=== PATIENT | female | born 1965 | race Asian ===

== ENCOUNTER 2024-01-04 01:40 | Inpatient (IN) ==
[2024-01-04] MEDS: Piperacillin/Tazobac 3.375 BAG 3.375 GM/100 ML BAG IV ONE (04:54)
[2024-01-04 04:59] LABS: Venous Bicarbonate HCO3 17.4 mmol/L (24-28)
[2024-01-04] MEDS ORDERED: Vancomycin 750 MG in NS 0.9% 250 ml 250 ML IVPB SCH (05:00)
[2024-01-04 05:10] LABS: INR 0.99 (0.85-1.14)
[2024-01-04 05:22] LABS: Hematocrit 28.3 % (35-45); Hemoglobin 8.9 g/dL (11.5-14.3); Mean Corpuscular Hemoglobin 25.5 pg (27-33); Mean Corpuscular Hgb Conc 31.4 g/dL (31-36); Mean Corpuscular Volume 81.1 fL (80-97); Mean Platelet Volume 8.5 fL (7.5-11.2); Platelet Count 211 10^3/uL (150-450); Red Blood Count 3.49 10^6/uL (3.63-4.92); Red Cell Distribution Width 16.6 % (12-17)
[2024-01-04] MEDS: Vancomycin 750 MG in NS 0.9% 250 ml 250 ML IVPB ONE (05:34)
[2024-01-04] MEDS: LACTATED RINGERS SEPSIS IV ONE (05:34)
[2024-01-04 05:50] LABS: Albumin 2.8 g/dL (3.2-5.2); Albumin/Globulin Ratio 0.6 (1-3); C Reactive Protein 3.52 mg/L (<8.01); Calcium 7.5 mg/dL (8.6-10.3); Creatinine, Serum 1.39 mg/dL (0.51-0.95); Globulin 4.8 g/dL (2-4); Potassium 5.1 mmol/L (3.5-5.0); Total Bilirubin 0.4 mg/dL (0.2-1.0); Total Protein 7.6 g/dL (6.4-8.9); eGFR CKD-EPI 44.3 (>60)
[2024-01-04 06:26] LABS: ABS Lymphocytes 0.3 10^3/uL (1.0-4.8); ABS Monocytes 0.3 10^3/uL (0.0-0.9); ABS Neutrophils 1.5 10^3/uL (1.5-7.6); ABS Nucleated RBC 0.04 10^3/ul; Anisocytosis 1+; Eosinophil % 0.5 %; Hypochromasia 1+; Nucleated Red Blood Cells % 1.9 %/100WBC (0.0-0.8); Tear Drop Cells 1+; White Blood Count 2.2 10^3/uL (3.8-11.8)
[2024-01-04 06:39] LABS: Erythrocyte Sed Rate 55 mm/Hr (0-29)
[2024-01-04 06:50] LABS: Urine Appearance Clear; Urine Bilirubin Negative (Negative); Urine Blood Negative (Negative); Urine Color Yellow; Urine Glucose Negative (Negative); Urine Ketones Negative (Negative); Urine Nitrite Negative (Negative); Urine Protein 1+ (>=30 mg/dL) (Negative); Urine Specific Gravity 1.019 (1.002-1.030); Urine Urobilinogen Negative (Negative)
[2024-01-04 06:59] LABS: High Sensitivity Troponin 1 Hr 79 pg/mL (<15)
[2024-01-04] MEDS: Acetaminophen IV 1 GM/100ML 1,000 MG/100 ML BAG IV ONE (08:12)
[2024-01-04] MEDS: Iodixanol (CONTRAST) 320 MG/ML 100 ML SDV IV ONE (08:43)
[2024-01-04] MEDS: Lactated Ringers 1000 ml BAG 1,000 ML IV ONE (12:59)
[2024-01-04] MEDS ORDERED: Vancomycin per Pharmacy 1 EA NOTE FOLLOW UP SCH (13:00)
[2024-01-04] MEDS: Enoxaparin 40 MG/0.4 ML SYR SUBCUT SCH (13:33)
[2024-01-04] MEDS: cefTRIAXone 2 gm/50 mL D5W 2 GM/50 ML BAG IV SCH (13:33)
[2024-01-04] MEDS: Hydrocortisone INJ 100 MG/2ML 2 ML VIAL IV SCH (14:55)
[2024-01-04 14:56] LABS: Osmolality Serum 276 mOsm/kg (275-295)
[2024-01-04 17:40] LABS: ABS Lymphocytes 0.2 10^3/uL (1.0-4.8); ABS Monocytes 0.2 10^3/uL (0.0-0.9); ABS Neutrophils 1.8 10^3/uL (1.5-7.6); ABS Nucleated RBC 0.02 10^3/ul; Hematocrit 26.5 % (35-45); Hemoglobin 8.3 g/dL (11.5-14.3); Lymphocyte % 9.3 %; Mean Corpuscular Hemoglobin 25.6 pg (27-33); Mean Corpuscular Hgb Conc 31.3 g/dL (31-36); Mean Corpuscular Volume 81.6 fL (80-97); Mean Platelet Volume 8.4 fL (7.5-11.2); Nucleated Red Blood Cells % 0.9 %/100WBC (0.0-0.8); Platelet Count 183 10^3/uL (150-450); Red Blood Count 3.24 10^6/uL (3.63-4.92); White Blood Count 2.2 10^3/uL (3.8-11.8)
[2024-01-04 17:48] LABS: Urine Osmo 256 mOsm/kg (150-1150)
[2024-01-04 18:22] LABS: Calcium 7.3 mg/dL (8.6-10.3); Creatinine, Serum 1.2 mg/dL (0.51-0.95); Potassium 4.8 mmol/L (3.5-5.0); eGFR CKD-EPI 52.8 (>60)
[2024-01-04] MEDS: Acetaminophen IV 1 GM/100ML 1,000 MG/100 ML BAG IV PRN (22:26)
[2024-01-05] MEDS: Norepinephrine 4 MG/250mL D5W 4,000 MCG/250 ML BAG IV SCH (01:02)
[2024-01-05] MEDS: Norepinephrine 4 MG/250mL D5W 4,000 MCG/250 ML BAG IV ONE (01:32)
[2024-01-05 05:30] LABS: Immature Retic Fraction 0.41
[2024-01-05 05:37] LABS: ABS Lymphocytes 0.4 10^3/uL (1.0-4.8); ABS Monocytes 0.2 10^3/uL (0.0-0.9); ABS Neutrophils 1.3 10^3/uL (1.5-7.6); ABS Nucleated RBC 0.03 10^3/ul; Eosinophil % 0.1 %; Hematocrit 29.2 % (35-45); Hematocrit for Retic CNT 29.2 % (35-45); Hemoglobin 9.4 g/dL (11.5-14.3); Lymphocyte % 20.1 %; Mean Corpuscular Hemoglobin 26.3 pg (27-33); Mean Corpuscular Hgb Conc 32.4 g/dL (31-36); Mean Corpuscular Volume 81.2 fL (80-97); Mean Platelet Volume 8.4 fL (7.5-11.2); Nucleated Red Blood Cells % 1.6 %/100WBC (0.0-0.8); Platelet Count 190 10^3/uL (150-450); RBC Retic Count 3.59 10^6/ul (3.63-4.92); Red Blood Count 3.59 10^6/uL (3.63-4.92); Red Cell Distribution Width 16.9 % (12-17); White Blood Count 1.9 10^3/uL (3.8-11.8)
[2024-01-05 05:54] LABS: Calcium 7.6 mg/dL (8.6-10.3); Creatinine, Serum 1.18 mg/dL (0.51-0.95); Magnesium 2.1 mg/dL (1.9-2.7); eGFR CKD-EPI 53.9 (>60)
[2024-01-05] MEDS ORDERED: Vancomycin 1,000 MG in NS 0.9% 250 ml 250 ML IVPB SCH (06:00)
[2024-01-05] MEDS: DOXYcycline 100 MG in NS 0.9% 250 ml 250 ML IVPB ONE (20:44)
[2024-01-05 23:55] LABS: Ferritin 6548.5 ng/mL (11-307)
[2024-01-06 07:37] LABS: Hematocrit 29.8 % (35-45); Hemoglobin 9.7 g/dL (11.5-14.3); Mean Corpuscular Hemoglobin 26.3 pg (27-33); Mean Corpuscular Hgb Conc 32.6 g/dL (31-36); Mean Corpuscular Volume 80.8 fL (80-97); Mean Platelet Volume 8.1 fL (7.5-11.2); Platelet Count 172 10^3/uL (150-450); Red Blood Count 3.68 10^6/uL (3.63-4.92); Red Cell Distribution Width 17.1 % (12-17); White Blood Count 1.9 10^3/uL (3.8-11.8)
[2024-01-06 17:24] LABS: Calcium 7.3 mg/dL (8.6-10.3); Creatinine, Serum 0.77 mg/dL (0.51-0.95); Potassium 4.4 mmol/L (3.5-5.0); eGFR CKD-EPI 89.9 (>60)
[2024-01-07 05:12] LABS: Hematocrit 28.5 % (35-45); Hemoglobin 9.3 g/dL (11.5-14.3); Mean Corpuscular Hemoglobin 26.5 pg (27-33); Mean Corpuscular Hgb Conc 32.7 g/dL (31-36); Mean Platelet Volume 8.3 fL (7.5-11.2); Platelet Count 131 10^3/uL (150-450); Red Blood Count 3.52 10^6/uL (3.63-4.92); Red Cell Distribution Width 17.3 % (12-17); White Blood Count 2.3 10^3/uL (3.8-11.8)
[2024-01-07] MEDS ORDERED: Vancomycin Trough Check NOTE FOLLOW UP ONE (05:30)
[2024-01-07 05:35] LABS: Creatinine, Serum 0.71 mg/dL (0.51-0.95); Magnesium 1.8 mg/dL (1.9-2.7); Phosphorus 3.1 mg/dL (2.5-5.0); Potassium 4.4 mmol/L (3.5-5.0); eGFR CKD-EPI 99.1 (>60)
[2024-01-07 05:39] LABS: Osmolality Serum 274 mOsm/kg (275-295)
[2024-01-07 05:47] LABS: Urine Osmo 640 mOsm/kg (150-1150)
[2024-01-07] MEDS: Magnesium Sulfate 2 gm BAG 2 GM/50 ML BAG IVPB ONE (06:09)
[2024-01-07 07:15] LABS: ABS Lymphocytes 0.6 10^3/uL (1.0-4.8); ABS Monocytes 0.7 10^3/uL (0.0-0.9); ABS Neutrophils 0.9 10^3/uL (1.5-7.6)
[2024-01-07 07:16] LABS: Anisocytosis 1+; Tear Drop Cells 1+
[2024-01-07 09:40] LABS: PCO2 Arterial 27 mmHg (35-45); PO2 Arterial 96 mmHg (80-100)
[2024-01-07] MEDS ORDERED: Sulfur Hexaflouride MICROSPHR 25 MG VIAL IV PRN (10:21)
[2024-01-07] MEDS: Metoprolol Tartrate 5 mg VIAL 5 ml VIAL (1 mg/ml) IV ONE (10:24)
[2024-01-07 11:31] LABS: TSH Ultra Thyroid Stim Horm 1.27 mcIU/mL (0.34-5.60)
[2024-01-07] MEDS: Enoxaparin 60 MG/0.6 ML SYR SUBCUT SCH ×2 (11:35→13:16)
[2024-01-07 11:36] LABS: RBC Parasite Smear No Parasites Seen (No Parasite)
[2024-01-07] MEDS: DOXYcycline 100 MG in NS 0.9% 250 ml 250 ML IVPB SCH ×2 (13:16→13:31)
[2024-01-08 09:03] LABS: Hematocrit 29.9 % (35-45); Hemoglobin 9.7 g/dL (11.5-14.3); Mean Corpuscular Hemoglobin 26.3 pg (27-33); Mean Corpuscular Hgb Conc 32.6 g/dL (31-36); Mean Corpuscular Volume 80.8 fL (80-97); Mean Platelet Volume 8.5 fL (7.5-11.2); Platelet Count 130 10^3/uL (150-450); Red Cell Distribution Width 17.1 % (12-17); White Blood Count 2.4 10^3/uL (3.8-11.8)
[2024-01-08 09:40] LABS: RBC Morphology Normal (Normal)
[2024-01-08 09:41] LABS: ABS Eosinophils 0.1 10^3/ul (0.0-0.5); ABS Lymphocytes 0.4 10^3/ul (1.0-4.8); ABS Monocytes 0.6 10^3/ul (0.0-0.9); ABS Neutrophils 1.4 10^3/ul (1.5-7.6)
[2024-01-08 10:03] LABS: Creatinine, Serum 0.58 mg/dL (0.51-0.95); Magnesium 2.2 mg/dL (1.9-2.7); Phosphorus 2.9 mg/dL (2.5-5.0); Potassium 4.4 mmol/L (3.5-5.0); eGFR CKD-EPI 105.5 (>60)
[2024-01-08] MEDS: Ure-Na 15 GM POWD.PACK PO SCH (14:41)
[2024-01-08 15:52] LABS: Folate 5.02 ng/mL (5.90-24.80)
[2024-01-08 23:55] LABS: Anaplasma phagocytophilum Negative (Negative); B. miyamotoi PCR, B Negative (Negative); Babesia divergens/MO-1 Negative (Negative); Babesia ducani Negative (Negative); Ehrlichia chaffeensis Negative (Negative); Ehrlichia ewingii/canis Negative (Negative); Ehrlichia muris eauclairensis Negative (Negative)
[2024-01-09] MEDS ORDERED: Magnesium Hydroxide LIQ 30 ML UDC PO PRN (04:44)
[2024-01-09 07:21] LABS: Creatinine, Serum 0.51 mg/dL (0.51-0.95); Potassium 4.3 mmol/L (3.5-5.0); eGFR CKD-EPI 108.8 (>60)
[2024-01-09 07:40] LABS: Hematocrit 29.8 % (35-45); Hemoglobin 8.9 g/dL (11.5-14.3); Mean Corpuscular Hemoglobin 26.2 pg (27-33); Mean Corpuscular Hgb Conc 29.8 g/dL (31-36); Mean Corpuscular Volume 87.9 fL (80-97); Mean Platelet Volume 8.9 fL (7.5-11.2); Platelet Count 115 10^3/uL (150-450); Red Blood Count 3.39 10^6/uL (3.63-4.92); Red Cell Distribution Width 18.8 % (12-17); White Blood Count 3.6 10^3/uL (3.8-11.8)
[2024-01-09 08:11] LABS: Hematocrit 27.8 % (35-45); Hemoglobin 9.1 g/dL (11.5-14.3); Mean Corpuscular Hemoglobin 26.6 pg (27-33); Mean Corpuscular Hgb Conc 32.8 g/dL (31-36); Mean Platelet Volume 8.5 fL (7.5-11.2); Platelet Count 120 10^3/uL (150-450); Red Blood Count 3.43 10^6/uL (3.63-4.92); Red Cell Distribution Width 17.6 % (12-17); White Blood Count 3.3 10^3/uL (3.8-11.8)
[2024-01-09 09:21] LABS: Anisocytosis 1+
[2024-01-09 09:22] LABS: ABS Lymphocytes 0.5 10^3/ul (1.0-4.8); ABS Monocytes 0.8 10^3/ul (0.0-0.9)
[2024-01-09 16:42] LABS: JO-1 Antibody <0.2 U; RNP Antibody, IgG >8.0 U; SS-A/Ro Antibody >8.0 U; SS-B/La Antibody 6.2 U; Scl 70 Ab, IgG, S <0.2 U; Sm (Smith) IgG Antibody 2.3 U
[2024-01-09 17:16] LABS: Uric Acid, U 306 mg/24 h (250 - 750); Urine Volume 650 mL
[2024-01-09 17:22] LABS: Cytomegalovirus IgG Antibody Positive (Negative)
[2024-01-09] MEDS: Enoxaparin 60 MG/0.6 ML SYR SUBCUT SCH (20:00)
[2024-01-09 23:01] LABS: ANA Pattern: Homogeneous; ANA Titer: >=1:2560
[2024-01-10 06:08] LABS: Hematocrit 25.9 % (35-45); Hemoglobin 8.2 g/dL (11.5-14.3); Mean Corpuscular Hemoglobin 25.7 pg (27-33); Mean Corpuscular Hgb Conc 31.7 g/dL (31-36); Mean Corpuscular Volume 81.1 fL (80-97); Mean Platelet Volume 8.7 fL (7.5-11.2); Platelet Count 128 10^3/uL (150-450); Red Blood Count 3.19 10^6/uL (3.63-4.92); Red Cell Distribution Width 17.3 % (12-17); White Blood Count 4.5 10^3/uL (3.8-11.8)
[2024-01-10 06:59] LABS: Albumin 2.2 g/dL (3.2-5.2); Albumin/Globulin Ratio 0.6 (1-3); Calcium 7.2 mg/dL (8.6-10.3); Creatinine, Serum 0.51 mg/dL (0.51-0.95); Globulin 3.5 g/dL (2-4); Magnesium 1.8 mg/dL (1.9-2.7); Potassium 3.9 mmol/L (3.5-5.0); Total Bilirubin 0.4 mg/dL (0.2-1.0); Total Protein 5.7 g/dL (6.4-8.9); eGFR CKD-EPI 108.8 (>60)
[2024-01-10 08:52] LABS: Ferritin 7767.3 ng/mL (11-307)
[2024-01-10 09:22] LABS: Anisocytosis 1+; Hypochromasia 1+; Polychromasia 1+
[2024-01-10 09:23] LABS: ABS Lymphocytes 0.5 10^3/ul (1.0-4.8); ABS Monocytes 1.2 10^3/ul (0.0-0.9); ABS Neutrophils 2.7 10^3/ul (1.5-7.6)
[2024-01-10 14:15] LABS: CMV DNA DETECT/QT, P Undetected IU/mL (Undetected)
[2024-01-10 14:47] LABS: IgG Immunoblot Negative (Negative); IgM Immunoblot Negative (Negative)
[2024-01-11 06:12] LABS: Hematocrit 24.4 % (35-45); Hemoglobin 8.1 g/dL (11.5-14.3); Mean Corpuscular Hemoglobin 26.6 pg (27-33); Mean Corpuscular Hgb Conc 33.1 g/dL (31-36); Mean Corpuscular Volume 80.4 fL (80-97); Mean Platelet Volume 8.3 fL (7.5-11.2); Platelet Count 130 10^3/uL (150-450); Red Blood Count 3.04 10^6/uL (3.63-4.92); Red Cell Distribution Width 17.5 % (12-17)
[2024-01-11 07:02] LABS: Calcium 7.3 mg/dL (8.6-10.3); Creatinine, Serum 0.55 mg/dL (0.51-0.95); Magnesium 1.9 mg/dL (1.9-2.7); eGFR CKD-EPI 106.8 (>60)
[2024-01-11 07:31] LABS: ABS Lymphocytes 0.9 10^3/uL (1.0-4.8); ABS Monocytes 1.2 10^3/uL (0.0-0.9); ABS Neutrophils 4.9 10^3/uL (1.5-7.6); ABS Nucleated RBC 0.16 10^3/ul; Anisocytosis 1+; Eosinophil % 0.1 %; Hypochromasia 1+; Lymphocyte % 13.2 %; Nucleated Red Blood Cells % 2.3 %/100WBC (0.0-0.8)
[2024-01-11 15:24] LABS: Urine Appearance Clear; Urine Bilirubin Negative (Negative); Urine Blood Negative (Negative); Urine Color Light-Yellow; Urine Glucose Negative (Negative); Urine Ketones Negative (Negative); Urine Nitrite Negative (Negative); Urine Protein Trace (Negative); Urine Specific Gravity 1.015 (1.002-1.030); Urine Urobilinogen Negative (Negative)
[2024-01-12] MEDS: Acetaminophen IV 1 GM/100ML 1,000 MG/100 ML BAG IV PRN (00:30)
[2024-01-12] MEDS: Morphine 2 MG/ML SYRINGE IV ONE ×2 (01:34→12:24)
[2024-01-12] MEDS: Iohexol 350 (CONTRAST) 500 ML MDV IV ONE (02:07)
[2024-01-12] MEDS: HYDROmorphone 0.5 MG/0.5 ML SYRINGE IV SLOW PU ONE (02:34)
[2024-01-12] MEDS: Ondansetron 4 mg VIAL 2 MG/ML 2 ml VIAL IV PRN (08:11)
[2024-01-12] MEDS: Pantoprazole VIAL 40 MG VIAL IV SCH (08:11)
[2024-01-12 08:43] LABS: Albumin 2.7 g/dL (3.2-5.2); Albumin/Globulin Ratio 0.6 (1-3); Calcium 7.9 mg/dL (8.6-10.3); Creatinine, Serum 0.66 mg/dL (0.51-0.95); Globulin 4.3 g/dL (2-4); Potassium 3.9 mmol/L (3.5-5.0); Total Bilirubin 0.5 mg/dL (0.2-1.0); eGFR CKD-EPI 102.3 (>60)
[2024-01-12 08:44] LABS: Hematocrit 30.7 % (35-45); Hemoglobin 9.9 g/dL (11.5-14.3); Mean Corpuscular Hemoglobin 26.2 pg (27-33); Mean Corpuscular Hgb Conc 32.3 g/dL (31-36); Mean Corpuscular Volume 81.2 fL (80-97); Mean Platelet Volume 8.5 fL (7.5-11.2); Platelet Count 197 10^3/uL (150-450); Red Blood Count 3.78 10^6/uL (3.63-4.92); Red Cell Distribution Width 17.8 % (12-17); White Blood Count 9.4 10^3/uL (3.8-11.8)
[2024-01-12 09:54] LABS: ABS Lymphocytes 1.5 10^3/uL (1.0-4.8); ABS Monocytes 2.1 10^3/uL (0.0-0.9); ABS Neutrophils 5.7 10^3/uL (1.5-7.6); Anisocytosis 2+; Hypochromasia 1+; Lymphocyte % 15.6 %
[2024-01-12] MEDS: Bismuth Subsalicylate (BTL) 525 MG/30 ML (BULK BTL) PO PRN (11:07)
[2024-01-12 13:42] LABS: Hematocrit 24.3 % (35-45); Hemoglobin 7.8 g/dL (11.5-14.3); Mean Corpuscular Hgb Conc 32.1 g/dL (31-36); Red Blood Count 3.01 10^6/uL (3.63-4.92); Red Cell Distribution Width 17.7 % (12-17)
[2024-01-12 13:49] LABS: Mean Platelet Volume 8.1 fL (7.5-11.2); Platelet Count 172 10^3/uL (150-450); White Blood Count 9.1 10^3/uL (3.8-11.8)
[2024-01-12 14:42] LABS: Hematocrit 25.4 % (35-45)
[2024-01-12 18:18] LABS: Hematocrit 24.6 % (35-45); Hemoglobin 7.9 g/dL (11.5-14.3)
[2024-01-13 01:43] LABS: Hematocrit 26.5 % (35-45); Hemoglobin 7.8 g/dL (11.5-14.3); Mean Corpuscular Hgb Conc 29.7 g/dL (31-36); Mean Corpuscular Volume 84.3 fL (80-97); Mean Platelet Volume 8.7 fL (7.5-11.2); Platelet Count 173 10^3/uL (150-450); Red Blood Count 3.14 10^6/uL (3.63-4.92); Red Cell Distribution Width 18.6 % (12-17); White Blood Count 12.9 10^3/uL (3.8-11.8)
[2024-01-13] MEDS: Morphine 2 MG/ML SYRINGE IV PRN (02:23)
[2024-01-13] MEDS: Lactated Ringers 1000 ml BAG 500 ML IV ONE (06:30)
[2024-01-13 06:41] LABS: Hematocrit 25.1 % (35-45); Hemoglobin 7.1 g/dL (11.5-14.3); Mean Corpuscular Hemoglobin 26.4 pg (27-33); Mean Corpuscular Hgb Conc 28.2 g/dL (31-36); Mean Corpuscular Volume 93.7 fL (80-97); Mean Platelet Volume 10.1 fL (7.5-11.2); Platelet Count 173 10^3/uL (150-450); Red Blood Count 2.68 10^6/uL (3.63-4.92); Red Cell Distribution Width 20.1 % (12-17)
[2024-01-13 06:47] LABS: Calcium 7.7 mg/dL (8.6-10.3); Creatinine, Serum 1.47 mg/dL (0.51-0.95); Potassium 4.7 mmol/L (3.5-5.0); eGFR CKD-EPI 41.4 (>60)
[2024-01-13] MEDS: Lactated Ringers 1000 ml BAG 1,000 ML IV ONE ×3 (07:35→12:20)
[2024-01-13] MEDS: NS 0.9% 1000 ml BAG 1,000 ML IV SCH (08:34)
[2024-01-13] MEDS ORDERED: fentaNYL 100 mcg/2 ml 50 MCG/ML VIAL ONE (12:49)
[2024-01-13] MEDS ORDERED: Midazolam 5 mg/5 ml VIAL 1 mg/ml 5 ml VIAL (5 mg) ONE (12:49)
[2024-01-13] MEDS ORDERED: Iohexol 350 (CONTRAST) 100 ML PAK IV ONE (12:50)
[2024-01-13] MEDS ORDERED: Lidocaine 1% VIAL 10 MG/ML 30 ML VIAL ONE (12:50)
[2024-01-13] MEDS ORDERED: Heparin 2 UNITS/ML IVPREMIX 3,000 UNIT/1,500 ML BAG IV ONE (12:51)
[2024-01-13] MEDS ORDERED: Iodixanol 320 (CONTRAST) 100 ML SDV ONE (12:51)
[2024-01-13] MEDS ORDERED: Zosyn per Pharmacy NOTE FOLLOW UP SCH (17:00)
[2024-01-13] MEDS: NS 0.9% 1000 ml BAG 1,000 ML IV ONE (17:22)
[2024-01-13 17:25] LABS: Creatinine, Serum 1.7 mg/dL (0.51-0.95); Potassium 4.8 mmol/L (3.5-5.0); eGFR CKD-EPI 34.8 (>60)
[2024-01-13 18:27] LABS: Hemoglobin 6.5 g/dL (11.5-14.3); Mean Corpuscular Hemoglobin 26.6 pg (27-33); Mean Corpuscular Hgb Conc 31.1 g/dL (31-36); Mean Corpuscular Volume 85.7 fL (80-97); Mean Platelet Volume 10.4 fL (7.5-11.2); Platelet Count 139 10^3/uL (150-450); Red Blood Count 2.45 10^6/uL (3.63-4.92); Red Cell Distribution Width 18.3 % (12-17); White Blood Count 14.6 10^3/uL (3.8-11.8)
[2024-01-13 19:17] LABS: INR 1.38 (0.85-1.14)
[2024-01-13 19:18] LABS: Activated Partial Thrombo Time 41.7 seconds (26.0-38.0)
[2024-01-13 19:19] LABS: Platelet Count 121 10^3/ul (150-450)
[2024-01-13] MEDS: CALCIUM GLUCONATE 1GM/50ML NS 1 GM/50 ML BAG IV SCH (19:49)
[2024-01-13 20:05] LABS: Schistocytes PRESENT
[2024-01-13] MEDS: Piperacillin/Tazobac 3.375 BAG 3.375 GM/100 ML BAG IV ONE (20:41)
[2024-01-13] MEDS: Iodixanol (CONTRAST) 320 MG/ML 100 ML SDV IV ONE (22:20)
[2024-01-13 23:14] LABS: Hematocrit 23.8 % (35-45); Hemoglobin 7.9 g/dL (11.5-14.3)
[2024-01-14 00:24] LABS: UR Microalbumin (mg/L) 137.1 mg/L; Urine Creatinine 140.03 mg/dL; Urine Microalbumin/Creatinine 97.9 mcg/mg (<31)
[2024-01-14] MEDS: ZOSYN 3.375 GM Q8H per EXTENDED INFUSION IV SCH (02:28)
[2024-01-14 03:45] LABS: INR 1.16 (0.85-1.14)
[2024-01-14 04:01] LABS: Albumin 2.4 g/dL (3.2-5.2); Albumin/Globulin Ratio 0.9 (1-3); Calcium 7.3 mg/dL (8.6-10.3); Creatinine, Serum 1.24 mg/dL (0.51-0.95); Globulin 2.7 g/dL (2-4); Magnesium 1.8 mg/dL (1.9-2.7); Potassium 3.9 mmol/L (3.5-5.0); Total Bilirubin 0.8 mg/dL (0.2-1.0); Total Protein 5.1 g/dL (6.4-8.9); eGFR CKD-EPI 50.8 (>60)
[2024-01-14 04:08] LABS: Hematocrit 22.7 % (35-45); Hemoglobin 7.8 g/dL (11.5-14.3)
[2024-01-14] MEDS: Norepinephrine 4 MG/250mL D5W 4,000 MCG/250 ML BAG IV ONE (04:27)
[2024-01-14 04:49] LABS: Mean Corpuscular Hemoglobin 27.7 pg (27-33); Mean Corpuscular Hgb Conc 34.2 g/dL (31-36); Mean Corpuscular Volume 80.9 fL (80-97); Mean Platelet Volume 9.2 fL (7.5-11.2); Platelet Count 92 10^3/uL (150-450); Red Cell Distribution Width 16.4 % (12-17)
[2024-01-14 04:50] LABS: ABS Neutrophils 11.3 10^3/ul (1.5-7.6); Anisocytosis 2+; Lymphocyte % 9.2 %
[2024-01-14 04:51] LABS: ABS Lymphocytes 1.2 10^3/ul (1.0-4.8); ABS Monocytes 1.1 10^3/ul (0.0-0.9)
[2024-01-14 04:59] LABS: White Blood Count 10.7 10^3/uL (3.8-11.8)
[2024-01-14] MEDS: Lactated Ringers 1000 ml BAG 1,000 ML IV SCH (06:12)
[2024-01-14] MEDS: Magnesium Sulfate 2 gm BAG 2 GM/50 ML BAG IVPB ONE (06:30)
[2024-01-14] MEDS: KCL 10 MEQ/50 ML IVPREMIX 10 MEQ/50 ML BAG IV SCH (10:13)
[2024-01-14 13:57] LABS: Hematocrit 23.3 % (35-45); Hemoglobin 7.9 g/dL (11.5-14.3)
[2024-01-14 14:42] LABS: Platelet Count 96 10^3/ul (150-450)
[2024-01-14 14:52] LABS: Activated Partial Thrombo Time 33.3 seconds (26.0-38.0); INR 1.06 (0.85-1.14)
[2024-01-14 15:07] LABS: Schistocytes ABSENT
[2024-01-14] MEDS: Metoprolol Tartrate 5 mg VIAL 5 ml VIAL (1 mg/ml) IV ONE ×2 (16:57→18:19)
[2024-01-15] MEDS: Lactated Ringers 1000 ml BAG 1,000 ML IV SCH (04:16)
[2024-01-15 05:37] LABS: Albumin 2.4 g/dL (3.2-5.2); Albumin/Globulin Ratio 0.8 (1-3); Calcium 7.2 mg/dL (8.6-10.3); Creatinine, Serum 0.79 mg/dL (0.51-0.95); Globulin 2.9 g/dL (2-4); Magnesium 2.5 mg/dL (1.9-2.7); Potassium 4.5 mmol/L (3.5-5.0); Total Bilirubin 0.6 mg/dL (0.2-1.0); Total Protein 5.3 g/dL (6.4-8.9); eGFR CKD-EPI 87.2 (>60)
[2024-01-15 05:46] LABS: Hematocrit 21.4 % (35-45); Hemoglobin 7.1 g/dL (11.5-14.3); Mean Corpuscular Hemoglobin 27.1 pg (27-33); Mean Platelet Volume 8.8 fL (7.5-11.2); Platelet Count 86 10^3/uL (150-450); Red Blood Count 2.61 10^6/uL (3.63-4.92); Red Cell Distribution Width 16.8 % (12-17)
[2024-01-15 06:11] LABS: ABS Lymphocytes 0.9 10^3/uL (1.0-4.8); ABS Monocytes 1.2 10^3/uL (0.0-0.9); ABS Neutrophils 17.6 10^3/uL (1.5-7.6); ABS Nucleated RBC 3.35 10^3/ul; Anisocytosis 2+; Lymphocyte % 4.4 %; Polychromasia 1+
[2024-01-15 06:14] LABS: White Blood Count 16.8 10^3/uL (3.8-11.8)
[2024-01-15 09:45] LABS: Hematocrit 21.4 % (35-45); Mean Corpuscular Hemoglobin 27.1 pg (27-33); Mean Corpuscular Volume 82.2 fL (80-97); Mean Platelet Volume 9.7 fL (7.5-11.2); Platelet Count 90 10^3/uL (150-450); Red Cell Distribution Width 17.1 % (12-17)
[2024-01-15 10:15] LABS: ABS Lymphocytes 0.6 10^3/uL (1.0-4.8); ABS Monocytes 1.1 10^3/uL (0.0-0.9); ABS Nucleated RBC 2.96 10^3/ul; Anisocytosis 2+; Basophilic Stippling 1+; Polychromasia 1+; Schistocytes 1+; White Blood Count 14.8 10^3/uL (3.8-11.8)
[2024-01-15 10:25] LABS: Calcium 7.2 mg/dL (8.6-10.3); Creatinine, Serum 0.7 mg/dL (0.51-0.95); eGFR CKD-EPI 100.8 (>60)
[2024-01-15] MEDS: fentaNYL 100 mcg/2 ml 50 MCG/ML VIAL ONE (11:38)
[2024-01-16 04:49] LABS: INR 1.08 (0.85-1.14)
[2024-01-16 04:58] LABS: Hematocrit 18.7 % (35-45); Hemoglobin 6.1 g/dL (11.5-14.3); Mean Corpuscular Hemoglobin 27.5 pg (27-33); Mean Corpuscular Hgb Conc 32.7 g/dL (31-36); Mean Platelet Volume 9.2 fL (7.5-11.2); Platelet Count 77 10^3/uL (150-450); Red Blood Count 2.23 10^6/uL (3.63-4.92); Red Cell Distribution Width 17.4 % (12-17); White Blood Count 15.6 10^3/uL (3.8-11.8)
[2024-01-16 05:22] LABS: Creatinine, Serum 0.62 mg/dL (0.51-0.95); Magnesium 2.3 mg/dL (1.9-2.7); Potassium 4.1 mmol/L (3.5-5.0); eGFR CKD-EPI 103.8 (>60)
[2024-01-16 08:46] LABS: Albumin 2.2 g/dL (3.2-5.2); Albumin/Globulin Ratio 0.8 (1-3); Direct Bilirubin 0.1 mg/dL (0.03-0.18); Globulin 2.9 g/dL (2-4); Indirect Bilirubin 0.5 mg/dL (0.3-1.0); Total Bilirubin 0.6 mg/dL (0.2-1.0); Total Protein 5.1 g/dL (6.4-8.9)
[2024-01-17 06:22] LABS: Hematocrit 24.7 % (35-45); Hemoglobin 8.2 g/dL (11.5-14.3); Mean Corpuscular Hemoglobin 28.2 pg (27-33); Mean Corpuscular Hgb Conc 33.1 g/dL (31-36); Mean Corpuscular Volume 85.3 fL (80-97); Mean Platelet Volume 8.9 fL (7.5-11.2); Platelet Count 75 10^3/uL (150-450); White Blood Count 10.6 10^3/uL (3.8-11.8)
[2024-01-17 06:26] LABS: Calcium 7.1 mg/dL (8.6-10.3); Creatinine, Serum 0.52 mg/dL (0.51-0.95); Magnesium 2.2 mg/dL (1.9-2.7); Potassium 3.8 mmol/L (3.5-5.0); eGFR CKD-EPI 108.3 (>60)
[2024-01-17] MEDS: Potassium Chlor 20 meq TAB.ER PO ONE (08:56)
[2024-01-17 18:32] LABS: Complement C3 31 mg/dL (75 - 175)
[2024-01-18 06:12] LABS: Hematocrit 24.2 % (35-45); Mean Corpuscular Hemoglobin 28.2 pg (27-33); Mean Corpuscular Hgb Conc 32.9 g/dL (31-36); Mean Corpuscular Volume 85.5 fL (80-97); Mean Platelet Volume 8.8 fL (7.5-11.2); Platelet Count 86 10^3/uL (150-450); Red Blood Count 2.83 10^6/uL (3.63-4.92); Red Cell Distribution Width 17.3 % (12-17); White Blood Count 11.2 10^3/uL (3.8-11.8)
[2024-01-18 07:04] LABS: Creatinine, Serum 0.49 mg/dL (0.51-0.95); eGFR CKD-EPI 109.9 (>60)
[2024-01-19 06:25] LABS: Hematocrit 26.1 % (35-45); Hemoglobin 8.7 g/dL (11.5-14.3); Mean Corpuscular Hemoglobin 28.6 pg (27-33); Mean Corpuscular Hgb Conc 33.3 g/dL (31-36); Mean Corpuscular Volume 85.7 fL (80-97); Mean Platelet Volume 8.7 fL (7.5-11.2); Platelet Count 110 10^3/uL (150-450); Red Blood Count 3.05 10^6/uL (3.63-4.92); Red Cell Distribution Width 17.8 % (12-17); White Blood Count 12.1 10^3/uL (3.8-11.8)
[2024-01-19 06:40] LABS: Calcium 7.1 mg/dL (8.6-10.3); Creatinine, Serum 0.44 mg/dL (0.51-0.95); Magnesium 1.9 mg/dL (1.9-2.7); Potassium 3.9 mmol/L (3.5-5.0); eGFR CKD-EPI 112.7 (>60)
[2024-01-19] MEDS: Potassium Chlor 20 meq TAB.ER PO ONE (08:15)
[2024-01-19] MEDS: Magnesium Sulfate 2 gm BAG 2 GM/50 ML BAG IVPB ONE (08:15)
[2024-01-19 12:43] LABS: Urine Appearance Clear; Urine Bilirubin Negative (Negative); Urine Blood 2+ (Negative); Urine Color Yellow; Urine Glucose Negative (Negative); Urine Ketones 1+ (Negative); Urine Nitrite Negative (Negative); Urine Protein 1+ (>=30 mg/dL) (Negative); Urine Urobilinogen Negative (Negative)
[2024-01-19 12:55] LABS: Urine Bacteria Absent /HPF (Absent); Urine Red Blood Cell 3+(>10/hpf) /HPF (0-Trace); Urine Squamous Epithelial Cell Present /HPF (Absent); Urine White Blood Cell 2+(11-20/hpf) /HPF (0-Trace)
[2024-01-20 09:42] LABS: Hematocrit 26.9 % (35-45); Hemoglobin 8.9 g/dL (11.5-14.3); Mean Corpuscular Hemoglobin 28.4 pg (27-33); Mean Corpuscular Volume 86.1 fL (80-97); Mean Platelet Volume 8.6 fL (7.5-11.2); Platelet Count 127 10^3/uL (150-450); Red Blood Count 3.13 10^6/uL (3.63-4.92); Red Cell Distribution Width 18.1 % (12-17)
[2024-01-20 10:00] LABS: Calcium 7.2 mg/dL (8.6-10.3); Creatinine, Serum 0.43 mg/dL (0.51-0.95); Magnesium 1.9 mg/dL (1.9-2.7); eGFR CKD-EPI 113.4 (>60)
[2024-01-20 15:14] VITALS: BP 120/82
== END 2024-01-20 15:30 | disposition home or self-care (01) | DRG 710 ==
LOC: ED 01:40 → EDHOLD 01:40 → SUATTDRO 11:35 → ICU 15:51 → SUATTDRO 01-05 14:21 → ICU 01-05 14:21 → SSU 01-07 20:01 → MEDTELE 01-08 22:23 → ICU 01-13 17:12 → MEDTELE 01-16 10:09
PROVIDERS: ADMIT Student in an Organized Health Care Education/Training Program; ATTEND Hospitalist